=== PATIENT | male | born 1945 | race Caucasian/White ===

== ENCOUNTER 2017-10-06 23:51 | Observation (INO) | payer MEDICARE, OTHER ==
[~2017-10-06] VITALS: Ht 177.8 cm; Wt 93.2 kg
[2017-10-07 00:33] LABS: BASOPHILS 0.2 % (0-2); EOSINOPHILS 0.4 % (0-7); HEMOGLOBIN 10.2 g/dL (13.5-17.5); IMMATURE GRANULOCYTES 0.7 % (0-5); LYMPHOCYTES 26.5 % (15-50); MCH 32.5 pg (26.0-34.0); MCHC 32.9 g/dL (31.0-37.0); MCV 98.7 fL (80.0-100.0); MEAN PLATELET VOLUME 9.7 fL (7.4-10.4); MONOCYTES 11.6 % (2-11); NEUTROPHILS 60.6 % (40-80); RBC 3.14 10x6/uL (4.20-6.10); WBC 10.3 10x3/uL (4.8-10.8)
[2017-10-07 00:41] LABS: PLATELET COUNT 315 10x3/uL (130-400)
[2017-10-07 00:53] LABS: ALBUMIN 3.4 g/dL (3.4-5.0); ALKALINE PHOSPHATASE 45 U/L (46-116); ALT (SGPT) 31 U/L (10-68); BILIRUBIN - TOTAL 0.32 mg/dL (0.2-1.3); CALC OSMOLALITY 284 mosm/kg (275-300); CALCIUM 8.6 mg/dL (8.5-10.1); CARBON DIOXIDE 26.2 mmol/L (21.0-32.0); CHLORIDE - SERUM 101 mmol/L (98-107); CREATININE - SERUM 2.4 mg/dL (0.6-1.3); GLUCOSE 183 mg/dL (74-106); POTASSIUM - SERUM 4.1 mmol/L (3.5-5.1); PROTEIN - SERUM 7.1 g/dL (6.4-8.2); SODIUM 137 mmol/L (136-145); UREA NITROGEN 28 mg/dL (7-18); eGFR NON AFRICAN AMERICAN 29 mL/min (90-120)
[2017-10-07 00:54] LABS: KETONE - SERUM NEGATIVE (NEGATIVE)
[2017-10-07 00:58] LABS: APTT 29.1 SECONDS (22.8-39.4); INR 1.16 (0.85-1.17); PROTIME 14.4 SECONDS (11.6-15.0)
[2017-10-07 00:58] LABS: APPEARANCE CLEAR (CLEAR); BILIRUBIN NEGATIVE (NEGATIVE); COLOR YELLOW (YELLOW); GLUCOSE 250 mg/dL (NEGATIVE); KETONE NEGATIVE (NEGATIVE); NITRITE NEGATIVE (NEGATIVE); PROTEIN NEGATIVE (NEGATIVE); SPECIFIC GRAVITY 1.015 (1.005-1.020); UROBILINOGEN NORMAL (NORMAL)
[2017-10-07 01:03] LABS: CREATINE KINASE 65 UL (21-232); LIPASE 130 U/L (73-393); PRO BNP 127 pg/mL (0-125)
[2017-10-07 01:08] LABS: TROPONIN-I < 0.017 ng/mL (0.000-0.060)
[2017-10-07 01:18] LABS: UDS - AMPHET NEGATIVE QUAL (NEGATIVE); UDS - BARB NEGATIVE QUAL (NEGATIVE); UDS - BENZO NEGATIVE QUAL (NEGATIVE); UDS - COCAINE NEGATIVE QUAL (NEGATIVE); UDS - OPIATE POSITIVE QUAL (NEGATIVE); UDS - PCP NEGATIVE QUAL (NEGATIVE); UDS - THC POSITIVE QUAL (NEGATIVE)
[2017-10-07 04:00] VITALS: BP 108/67
[2017-10-07 04:02] VITALS: BP 108/62; Ht 177.8 cm; Wt 93.2 kg
[2017-10-07] MEDS ORDERED: ELAVIL25 MG PO (05:03)
[2017-10-07] MEDS ORDERED: LIPITOR80 MG PO (05:04)
[2017-10-07] MEDS ORDERED: BUPROPION HCL150 M1 PO (05:05)
[2017-10-07] MEDS ORDERED: WELLBUTRIN XL150 M1 PO (05:05)
[2017-10-07] MEDS ORDERED: VITAMIN B-121000 MCG PO (05:06)
[2017-10-07] MEDS ORDERED: CYMBALTA60 MG PO (05:06)
[2017-10-07] MEDS ORDERED: NEURONTIN 300300 MG PO (05:07)
[2017-10-07] MEDS ORDERED: GLUCOTROL XL 5 M5 MG PO (05:07)
[2017-10-07] MEDS ORDERED: HYDROCODONE-APA1 TAB PO (05:08)
[2017-10-07] MEDS ORDERED: ZESTRIL40 MG PO (05:10)
[2017-10-07] MEDS ORDERED: GLUCOPHAGE500 MG PO (05:11)
[2017-10-07] MEDS ORDERED: OMEPRAZOLE20 M1 PO (05:12)
[2017-10-07] MEDS ORDERED: ENDOCET 10-3251 TAB PO (05:13)
[2017-10-07] MEDS ORDERED: ZANAFLEX2 M1 PO (05:14)
[2017-10-07] MEDS ORDERED: SOMA350 MG PO (05:15)
[2017-10-07] MEDS ORDERED: ASPIRIN81 MG PO (05:15)
[2017-10-07 09:26] VITALS: BP 134/74
--- NOTE | 2017-11-13 14:59 | DS ---
PATIENT:JESSICA FLORES :49 MEDICAL RECORD: [id number] DISCHARGE SUMMARY ADMISSION DATE: 10/07/17 DISCHARGE DATE: 10/07/17 This is a discharge dated 10/07/2017 from the inpatient hospital. The patient left against medical advice. DISCHARGE DIAGNOSES: 1. Generalized weakness. 2. Hypotension. 3. Renal insufficiency. 4. Syncope. 5. Anemia. 6. Hypertension by history. 7. Diabetes. HOSPITAL COURSE: Limited H&P is located on the chart on this 72-year-old male who was admitted with syncopal episode, generalized weakness, and hypotension. He had blood cultures done that were negative. Occult blood was negative as well. IV was started. He was given some IV fluids for hydration and continued on home medication. When primary care provider arrived for H&P, the patient refused and said he was fine and needed to leave to care for other family members. He was instructed on risks of leaving against medical advice and he chose to leave the hospital. IV was discontinued and he was discharged home on 10/07/2017. DISCHARGE MEDICATIONS: As per discharge medication reconciliation. DISCHARGE DISPOSITION: The patient is discharged home to follow up with primary care provider. TRANSINT:[id number] Voice Confirmation ID: [id number] DOCUMENT ID: [id number] Dictated By: ABDI CHANG I have interviewed/examined the above patient and agree with these documented findings. ORLANDO LOMBARDI MD at 1459 at 1459 CC: [id number] DICTATION DATE: 11/10/17 1414 WET MACHINE TENDER: 11/11/17 1001 DIS IN 10/07/17 [facility] [address] [place] [address]
== END 2017-10-07 10:25 | disposition left against medical advice (07) ==
LOC: D.ER 23:51 → D.MS 10-07 03:15 → OBSVTIME 10-07 03:15 → D.MS 10-07 10:25
PROVIDERS: Family Medicine; ADMIT Emergency Medicine
DX: R55 Syncope and collapse (principal); I95.9 Hypotension, unspecified; E11.22 Type 2 diabetes mellitus with diabetic chronic kidney disease; N18.9 Chronic kidney disease, unspecified; E11.40 Type 2 diabetes mellitus with diabetic neuropathy, unspecified; K21.9 Gastro-esophageal reflux disease without esophagitis

== ENCOUNTER 2019-07-28 10:07 | Emergency (ER) | payer OTHER ==
[~2019-07-28] VITALS: Ht 177.8 cm; Wt 90.9 kg
[~2019-07-28 10:07] MED LIST: ASPIRIN81 MG PO; BUPROPION HCL150 M1 PO; CYMBALTA60 MG PO; ELAVIL25 MG PO; ENDOCET 10-3251 TAB PO; GLUCOPHAGE500 MG PO; GLUCOTROL XL 5 M5 MG PO; HYDROCODONE-APA1 TAB PO; LIPITOR80 MG PO; NEURONTIN 300300 MG PO; OMEPRAZOLE20 M1 PO; SOMA350 MG PO; VITAMIN B-121000 MCG PO; WELLBUTRIN XL150 M1 PO; ZANAFLEX2 M1 PO; ZESTRIL40 MG PO
[2019-07-28 10:13] VITALS: Ht 177.8 cm; Wt 90.9 kg
[2019-07-28] MEDS ORDERED: LATUDA40 MG PO (10:16)
[2019-07-28 10:50] LABS: HEMATOCRIT 33.9 % (42.0-54.0); HEMOGLOBIN 11.2 g/dL (13.5-17.5); MCH 33.1 pg (26.0-34.0); MCV 100.3 fL (80.0-100.0); MEAN PLATELET VOLUME 10.1 fL (7.4-10.4); PLATELET COUNT 279 10x3/uL (130-400); RBC 3.38 10x6/uL (4.20-6.10); RDW 14.2 % (11.5-14.5)
[2019-07-28 10:54] LABS: ALBUMIN 3.8 g/dL (3.4-5.0); ALKALINE PHOSPHATASE 51 U/L (46-116); ALT (SGPT) 26 U/L (10-68); BILIRUBIN - TOTAL 0.56 mg/dL (0.2-1.3); CALC OSMOLALITY 289 mosm/kg (275-300); CHLORIDE - SERUM 104 mmol/L (98-107); CREATININE - SERUM 1.6 mg/dL (0.6-1.3); POTASSIUM - SERUM 4.3 mmol/L (3.5-5.1); PROTEIN - SERUM 8.5 g/dL (6.4-8.2); SODIUM 143 mmol/L (136-145); UREA NITROGEN 20 mg/dL (7-18); eGFR NON AFRICAN AMERICAN 45 mL/min (90-120)
[2019-07-28 10:56] LABS: GLUCOSE 128 mg/dL (74-106)
[2019-07-28 10:59] LABS: APTT 28.2 SECONDS (22.8-39.4); INR 1.06 (0.85-1.17); PROTIME 13.3 SECONDS (11.6-15.0)
[2019-07-28 11:05] LABS: CKMB 0.9 U/L (0.0-3.6); CREATINE KINASE 79 UL (21-232); MAGNESIUM - SERUM 1.4 mg/dL (1.8-2.4); TROPONIN-I < 0.017 ng/mL (0.000-0.060)
[2019-07-28 11:10] LABS: BASOPHILS 1 % (0-2); LYMPHOCYTES 35 % (15-50); MONOCYTES 2 % (2-11); NEUTROPHILS 57 % (40-80); PLATELET ESTIMATE NORMAL
[2019-07-28 14:15] VITALS: BP 137/77
== END 2019-07-28 14:15 | disposition home or self-care (01) ==
LOC: D.ER 10:07
PROVIDERS: Family Medicine
DX: E86.0 Dehydration (principal); I95.1 Orthostatic hypotension; I44.5 Left posterior fascicular block